=== PATIENT | male | born 1955 | race Caucasian/White ===

== ENCOUNTER 2018-01-31 17:03 | Emergency (ER) | payer MEDICARE ==
[~2018-01-31] VITALS: Ht 177.8 cm; Wt 81.7 kg
[~2018-01-31 17:03] MED LIST: CEPH500 PO; CRUTCH2 XX; Norco 10-325 T1 EACH PO; Percocet 5-3251 EACH PO
[2018-01-31 18:58] LABS: BASOPHILS ABSOLUTE AUTO 0.04 K/mm3 (0.00-0.23); BASOPHILS PERCENT AUTO 1 % (0-2); EOSINOPHILS ABSOLUTE AUTO 0.27 K/mm3 (0.00-0.68); EOSINOPHILS PERCENT AUTO 3 % (0-6); Hematocrit 44.7 % (37.0-53.0); Hemoglobin 14.7 g/dL (13.5-17.5); IMMATURE GRAN ABSOLUTE AUTO 0.03 K/mm3 (0.00-0.10); IMMATURE GRAN PERCENT AUTO 0 % (0-1); LYMPHOCYTES ABSOLUTE AUTO 1.99 K/mm3 (0.84-5.20); LYMPHOCYTES PERCENT AUTO 23 % (21-46); MONOCYTES ABSOLUTE AUTO 0.62 K/mm3 (0.16-1.47); MONOCYTES PERCENT AUTO 7 % (4-13); Mean Corpuscular HGB 29.7 pg (26.0-34.0); Mean Corpuscular HGB Conc 32.9 g/dL (31.5-36.5); Mean Corpuscular Volume 90 fL (80-100); Mean Platelet Volume 8.2 fL (9.1-12.4); NEUTROPHILS PERCENT AUTO 66 % (41-73); Platelet Count 298 K/mm3 (150-400); RDW Coefficient Variation 12.7 % (11.7-14.2); RDW Standard Deviation 41.6 fL (35.1-46.3); Red Blood Cell Count 4.95 M/mm3 (4.30-5.90); White Blood Cell Count 8.75 K/mm3 (4.00-11.30)
[2018-01-31 19:16] LABS: Alanine Aminotransfer (ALT/SGP 53 U/L (12-78); Albumin, Blood 3.9 g/dL (3.4-5.0); Alk Phos 72 U/L (50-136); Anion Gap 7 mmol/L (6-16); Aspartate Aminotrans (AST/SGOT 34 U/L (12-37); Bilirubin, Total 0.4 mg/dL (0.1-1.0); Blood Urea Nitrogen 15 mg/dL (8-24); Bun/Creatinine Ratio 18.2 (12.0-20.0); CO2, Blood 27 mmol/L (21-32); Calcium, Blood 9.2 mg/dL (8.5-10.1); Chloride, Blood 103 mmol/L (98-108); Creatinine, Blood 0.82 mg/dL (0.60-1.20); Globulin, Blood 3.8 g/dL (2.2-4.0); Glomerular Filtration Rate >60 (60-); Glucose, Blood 96 mg/dL (70-99); Potassium, Blood 3.9 mmol/L (3.5-5.5); Sodium, Blood 137 mmol/L (136-145); Total Protein, Blood 7.7 g/dL (6.4-8.2)
[2018-01-31] MEDS ORDERED: CEPH500 PO (21:15)
[2018-01-31] MEDS ORDERED: IBUP800 PO (21:16)
== END 2018-01-31 21:15 | disposition left against medical advice (07) ==
LOC: ER 17:03
PROVIDERS: Emergency Medicine
DX: L03.115 Cellulitis of right lower limb (principal)
CPT/HCPCS: 36415; 80053; 85025; 99283

== ENCOUNTER 2024-06-06 12:15 | Emergency (ER) | payer MEDICARE ==
[~2024-06-06] VITALS: Ht 177.8 cm; Wt 83.9 kg
[~2024-06-06 12:15] MED LIST changes: +IBUP800 PO; +OMEP20ER; +TADALAFIL20 M1 PO
[2024-06-06] MEDS ORDERED: Tetanus,Diphtheria Toxd Ped/Pf 0.5 ML VIAL IM ONE (12:25)
[2024-06-06 12:30] VITALS: BP 117/81
[2024-06-06] MEDS ORDERED: Diphth,Pertuss(Acell),Tet Vac 0.5 ML VIAL IM ONE (12:55)
[2024-06-06] MEDS ORDERED: Ketorolac Tromethamine 30mg Vial IV ONE (13:45)
== END 2024-06-06 15:05 | disposition left against medical advice (07) ==
LOC: ER 12:15
DX: T21.21XA Burn of second degree of chest wall, initial encounter (principal); T21.22XA Burn of second degree of abdominal wall, initial encounter; H72.92 Unspecified perforation of tympanic membrane, left ear; W40.1XXA Explosion of explosive gases, initial encounter; J44.9 Chronic obstructive pulmonary disease, unspecified; F17.210 Nicotine dependence, cigarettes, uncomplicated; Z79.899 Other long term (current) drug therapy
CPT/HCPCS: 71045; 90471; 90702; 90715; 96374; 99284-25; J1885

== ENCOUNTER 2024-09-01 11:35 | Day surgery (SDC) | payer MEDICARE ==
[~2024-09-01] VITALS: Ht 177.8 cm; Wt 84.2 kg
[~2024-09-01 11:35] MED LIST changes: +Lactated Ringer's 1,000 ML IV ONE; +propofoL 50 ML IV ONE
[2024-09-01] MEDS ORDERED: Lactated Ringer's 1,000 ML IV ONE (13:03)
[2024-09-01] MEDS ORDERED: propofoL 50 ML IV ONE (14:50)
--- NOTE | 2024-09-01 14:50 | NUR ---
09/01/24 1450 Kimberly Dalton PVC NOTED DURING PROCEDURE, SEE STRIP
[2024-09-01 15:21] VITALS: BP 98/76
== END 2024-09-01 15:20 | disposition home or self-care (01) ==
LOC: ORSCSDS 11:35
PROVIDERS: Internal Medicine Gastroenterology
PROC: 0DBK8ZX Excision of Ascending Colon, Via Natural or Artificial Opening Endoscopic, Diagnostic (ICD-10-PCS; principal; 2024-09-01 12:45)
PROC: 0DBN8ZX Excision of Sigmoid Colon, Via Natural or Artificial Opening Endoscopic, Diagnostic (ICD-10-PCS; principal; 2024-09-01 12:45)
PROC: 0DB58ZX Excision of Esophagus, Via Natural or Artificial Opening Endoscopic, Diagnostic (ICD-10-PCS; principal; 2024-09-01 12:45)
PROC: 0DB68ZX Excision of Stomach, Via Natural or Artificial Opening Endoscopic, Diagnostic (ICD-10-PCS; principal; 2024-09-01 12:45)
PROC: 0DB98ZX Excision of Duodenum, Via Natural or Artificial Opening Endoscopic, Diagnostic (ICD-10-PCS; principal; 2024-09-01 12:45)
DX: Z12.11 Encounter for screening for malignant neoplasm of colon (principal); Z86.0102 Personal history of hyperplastic colon polyps; K22.70 Barrett's esophagus without dysplasia; D12.2 Benign neoplasm of ascending colon; K63.5 Polyp of colon; K64.4 Residual hemorrhoidal skin tags; K21.00 Gastro-esophageal reflux disease with esophagitis, without bleeding; K44.9 Diaphragmatic hernia without obstruction or gangrene; B19.20 Unspecified viral hepatitis C without hepatic coma; F17.210 Nicotine dependence, cigarettes, uncomplicated; Z79.899 Other long term (current) drug therapy
CPT/HCPCS: 88305; 88342; J2704; J7120

== ENCOUNTER 2024-11-11 09:32 | Day surgery (SDC) | payer MEDICARE ==
[~2024-11-11] VITALS: Ht 177.8 cm; Wt 80.9 kg
[~2024-11-11 09:32] MED LIST changes: +Ciprofloxacin 0.3% Opth Soln 2.5 ML BTL ONE; +EPINEPhrine HCl 1 MG/ML 1ML Amp ONE; +Triamcinolone Inj Susp 40 MG / ML 1ML Vial ONE; -propofoL 50 ML IV ONE
[2024-11-11] MEDS ORDERED: Lactated Ringer's 1,000 ML IV ONE ×2 (10:37→14:52)
--- NOTE | 2024-11-11 11:30 | NUR ---
11/11/24 1130 Caryn Wells PT INFORMED MD FROST (ANESTHESIA) THAT HE DRANK OAT MILK AT 0730 THIS THIS AM. MD FROST NEEDS TO DELAY THIS START TIME OF PROCEDURE DUE TO THE OAT MILK. MD FROST SPEAKING WITH MD MA AT THIS TIME.
[2024-11-11] MEDS ORDERED: Ketorolac Tromethamine 30mg Vial ONE (11:32)
[2024-11-11] MEDS ORDERED: Citric Acid/Sodium Citrate 30 ML BTL ONE (11:37)
[2024-11-11] MEDS ORDERED: Famotidine 10 MG/ML 2ML Vial ONE (11:38)
[2024-11-11] MEDS ORDERED: Rocuronium Bromide 10 MG/ML 5ML Injection IV ONE (14:05)
[2024-11-11] MEDS ORDERED: Ondansetron HCl 2 MG / ML 2ML Vial ONE (14:05)
[2024-11-11] MEDS ORDERED: propofoL 20 ML IV ONE (14:06)
[2024-11-11] MEDS ORDERED: Midazolam HCl 1MG / ML 2ML Vial ONE (14:07)
[2024-11-11] MEDS ORDERED: FentaNYL Citrate 50 MCG/ML 2 ML Injection ONE (14:07)
[2024-11-11] MEDS ORDERED: propofoL 40 ML IV ONE (14:22)
[2024-11-11] MEDS ORDERED: Phenylephrine HCl 100 MCG/ML-NS 10MLSYR (1MG/10ML) ONE (14:25)
[2024-11-11] MEDS ORDERED: ePHEDrine Sulfate 50 MG/ML 1ML Injection ONE (14:31)
--- NOTE | 2024-11-11 14:46 | NUR ---
11/11/24 1446 Mary Magaña RN PREPPED RIGHT EAR WITH BETADINE SOLUTION. USED ALCOHOL IN AREAS OF DRAPE, MASTISOL USED TO SECURE DRAPE TO FACE
[2024-11-11] MEDS ORDERED: Sugammadex Sodium 200 MG/2ML SDV (100 MG/ML) ONE (15:06)
[2024-11-11 15:45] VITALS: BP 99/71
--- NOTE | 2024-11-11 16:24 | NUR ---
11/11/24 1624 Yemi Arechiga PTS ROMEO PRESENT FOR DISCHARGE INSTRUCTIONS. PT TOLERATING FOOD AND FLUIDS. DENIED NEED FOR ANALGESIA. PAIN 0/10.
== END 2024-11-11 16:23 | disposition home or self-care (01) ==
LOC: ORSCSDS 09:32
PROVIDERS: Otolaryngology
PROC: 09U77JZ Supplement Right Tympanic Membrane with Synthetic Substitute, Via Natural or Artificial Opening (ICD-10-PCS; principal; 2024-11-11 10:45)
DX: H90.6 Mixed conductive and sensorineural hearing loss, bilateral (principal); H72.93 Unspecified perforation of tympanic membrane, bilateral; J44.9 Chronic obstructive pulmonary disease, unspecified; F17.210 Nicotine dependence, cigarettes, uncomplicated; Z79.899 Other long term (current) drug therapy
CPT/HCPCS: A9270; C1763; J0171; J1885; J2250; J2371; J2405; J2704; J3010; J3301; J7120

== ENCOUNTER 2025-06-09 10:34 | Day surgery (SDC) | payer MEDICARE ==
[~2025-06-09] VITALS: Ht 177.8 cm; Wt 82.6 kg
[~2025-06-09 10:34] MED LIST changes: -Ciprofloxacin 0.3% Opth Soln 2.5 ML BTL ONE; -EPINEPhrine HCl 1 MG/ML 1ML Amp ONE; -Lactated Ringer's 1,000 ML IV ONE; -Triamcinolone Inj Susp 40 MG / ML 1ML Vial ONE
[2025-06-09] MEDS ORDERED: FentaNYL Citrate 50 MCG/ML 2 ML Injection ONE (11:44)
[2025-06-09] MEDS ORDERED: Rocuronium Bromide 10 MG/ML 5ML Injection IV ONE (11:44)
[2025-06-09] MEDS ORDERED: Triamcinolone Inj Susp 40 MG / ML 1ML Vial ONE (11:45)
[2025-06-09] MEDS ORDERED: Lidocaine 1%-Epineph 1:200000 30 ML SDV ONE (11:45)
[2025-06-09] MEDS ORDERED: ePHEDrine Sulfate 50 MG/ML 1ML Injection ONE (11:51)
[2025-06-09] MEDS ORDERED: Phenylephrine HCl 100 MCG/ML-NS 10MLSYR (1MG/10ML) ONE ×2 (12:22→12:47)
--- NOTE | 2025-06-09 13:19 | NUR ---
06/09/25 1319 Mary Magaña CIPROFLOXACIN 0.3% MIXED WITH KENALOG 40MG FOR PACKING, MEDICATION PULLED FROM PHARMACY AND NOT POPULATING IN THE MEDICATION LIST
--- NOTE | 2025-06-09 15:18 | NUR ---
06/09/25 1518 Raúl Ferguson ASSUMED CARE OF PT FROM [facility] AT 1502. MONITORS ALREADY LA'ED AND D/C INSTRUCTIONS PROVIDED BY THAT TIME. PT DENIED PAIN AND NAUSEA AT TIME OF D/C. HE APPEARED ALERT AND RELAXED AND EXPRESSED READINESS TO RETURN HOME.
[2025-06-09 15:29] VITALS: BP 111/69
== END 2025-06-09 15:15 | disposition home or self-care (01) ==
LOC: ORSCSDS 10:34
PROVIDERS: Otolaryngology
PROC: 09R707Z Replacement of Right Tympanic Membrane with Autologous Tissue Substitute, Open Approach (ICD-10-PCS; principal; 2025-06-09 12:00)
DX: H72.91 Unspecified perforation of tympanic membrane, right ear (principal); J44.9 Chronic obstructive pulmonary disease, unspecified; Z79.899 Other long term (current) drug therapy; F17.210 Nicotine dependence, cigarettes, uncomplicated
CPT/HCPCS: A9270; J0166; J2371; J2704; J3010; J3301; J7120